=== PATIENT | female | born 1970 | race Caucasian/White ===

== ENCOUNTER 2016-12-28 22:27 | Emergency (ER) | payer SELFPAY ==
[2016-12-28] MEDS ORDERED: 0.9 % SODIUM CHLORIDE 1,000 ML IV ONE (22:44)
[2016-12-28] MEDS ORDERED: INSULIN REGULAR, HUMAN 100 UNIT/ML 3ML VIAL IV ONE (22:45)
[2016-12-28] MEDS ORDERED: ONDANSETRON HCL 4 MG TAB.RAPDIS ONE (22:53)
[2016-12-28] MEDS ORDERED: ONDANSETRON HCL 4 MG TAB.RAPDIS PO ONE (22:53)
[2016-12-28 23:09] LABS: BASOPHILS % 0.6 (0.0-1.5); EOSINOPHILS % 2.3 % (0.0-6.8); MEAN CORPUSCULAR HEMOGLOBIN 29.9 pg (28.0-34.0); MEAN CORPUSCULAR VOLUME 95.8 fl (80.0-100.0); MONOCYTES % 4.3 % (0.0-11.0); NEUTROPHILS # 13.2 # k/uL (1.4-7.7)
[2016-12-28] MEDS ORDERED: INSULIN REGULAR, HUMAN 100 UNIT in 0.9 % SODIUM CHLORIDE 100 ML IV ONE ×2 (23:43)
--- NOTE | 2016-12-29 00:13 | ED Physician Documentation ---
General Adult - HISTORIAN Historian: patient - HPI Stated Complaint: n/v high blood sugar Chief Complaint: General Adult Additional Information: Nausea, vomiting, polyuria, sleeping, for three days. Toes amputated at [facility] on 12/21, said to be 2/2 blood clots, 2/2 blood clot in abdomen. Told at that time she had DM. Says no primary, no referral, no education. Brought to ER POV per son. 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 12/21 amputatioon three toes right foot) Allergies/Adverse Reactions: Allergies Allergy/AdvReac Type Severity Reaction Status Date / Time codeine Allergy Verified 12/28/16 23:01 - SOCIAL HX Smoking History: cigarettes Alcohol Use: none Drug Use: none - FAMILY HX Family History: No (no signif) - VITAL SIGNS Vital Signs: Vital Signs Temp Pulse Resp BP Pulse Ox 99 F 113 H 22 118/49 96 12/28/16 22:28 12/28/16 22:28 12/28/16 22:28 12/28/16 22:28 12/28/16 22:28 - REVIEWED ASSESSMENTS Nursing Assessment Reviewed: Yes Vitals Reviewed: Yes Progress - Progress Progress: Chest 2 views History: Hyperglycemia and diabetes Findings: The lungs are clear. No pleural effusions are observed. Heart size and pulmonary vascularity are normal. Osseous structures are unremarkable. Impression: Normal chest. Electronically signed on December 29, 2016 12:05:08 AM CDT by: Yannick Vail [id number]. accepted for direct admit to [facility] per Dr. Ford ED Results Lab/Radiology - Lab Results Lab Results: Lab Results 12/28/16 23:01 WBC 16.20 K/ul H K/ul (4.00-12.00) RBC 4.99 M/ul M/ul (3.90-5.20) Hgb 14.9 g/dL g/dL (12.0-16.0) Hct 47.8 % H % (34.5-46.5) MCV 95.8 fl fl (80.0-100.0) MCH 29.9 pg pg (28.0-34.0) MCHC 31.2 g/dL g/dL (30.0-36.0) RDW 12.8 % % (11.3-14.3) Plt Count 404 K/mm3 H K/mm3 (130-400) Neut % (Auto) 81.6 % H % (39.0-79.0) Lymph % (Auto) 10.3 % L % (16.0-50.0) Grainger % (Auto) 4.3 % % (0.0-11.0) Eos % (Auto) 2.3 % % (0.0-6.8) Baso % (Auto) 0.6 (0.0-1.5) Neut # 13.2 # k/uL H # k/uL (1.4-7.7) Lymph # 1.7 # k/uL # k/uL (0.6-4.0) Grainger # 0.7 # k/uL # k/uL (0.0-0.9) Eos # 0.4 # k/uL # k/uL (0.0-0.6) Baso # 0.1 # k/uL # k/uL (0.0-0.5) Reactive Lymphs % 0.9 % % (0.0-5.0) Reactive Lymphs # 0.2 # k/uL # k/uL (0.0-0.8) - Orders Orders: ED Orders Category Date Time Status Further Nursing Orders 1T Care 12/28/16 22:42 Active CHEST P.A.&LAT 2 VIEWS [RAD] Stat Exams 12/28/16 Ordered ARTERIAL BLOOD GAS Stat Lab 12/28/16 Uncollected CBC/PLATELET/DIFF Routine Lab 12/28/16 Ordered CMP Routine Lab 12/28/16 Ordered URINALYSIS Routine Lab 12/28/16 Ordered joe [AMYLASE] Routine Lab 12/28/16 Ordered 0.9 % Sodium Chloride [Normal Saline] 1,000 ml Med 12/28/16 22:44 Active IV Q1H Insulin Regular, Human [Humulin R] Med 12/28/16 22:45 Discontinued 10 unit IV NOW ONE Ondansetron HCl Rapdis [Zofran Odt] Med 12/28/16 22:53 Discontinued 4 mg .ROUTE .STK-MED ONE Ondansetron HCl Rapdis [Zofran Odt] Med 12/28/16 22:53 Once 4 mg PO NOW ONE General Adult Physical Exam - PHYSICAL EXAM GENERAL APPEARANCE: moderate distress EENT: eye inspection normal, ENT inspection normal, pharynx normal, dry mucous membranes NECK: normal inspection, supple RESPIRATORY: no resp distress, breath sounds normal CVS: reg rate & rhythm, heart sounds normal ABDOMEN: soft, normal bowel sounds RECTAL: deferred BACK: normal inspection, no CVA tenderness SKIN: warm/dry, normal color EXTREMITIES: non-tender, other (sutures in place right foot) NEURO: CN's nml as tested, motor nml, sensation nml, cognition normal Discharge Clincal Impression: Diabetic ketoacidosis Referrals: Primary Doctor,No [Primary Care Provider] - 2 Days Condition: Fair Disposition: XFER SHT-TRM HOSP Decision to Admit: NO Decision Time: 00:09
[2016-12-29] MEDS ORDERED: 0.9 % SODIUM CHLORIDE 1,000 ML IV SCH (00:30)
[2016-12-29 00:46] VITALS: BP 163/99
[2016-12-29 05:34] LABS: APPEARANCE,URINE CLEAR (CLEAR); COLOR,URINE YELLOW (YELLOW); OCCULT BLOOD,URINE 2+ (NEGATIVE); UROBILINOGEN URINE 0.2 Eu (0.2-1.0)
[2016-12-29 05:36] LABS: AMPHETAMINE NEGATIVE ng/mL (<1000); BARBITURATES NEGATIVE ng/mL (<300); CANNABINOIDS NEGATIVE ng/mL (<50); COCAINE NEGATIVE ng/mL (<150); METHAMPHETAMINE NON NEGATIVE ng/mL (<1000); METHYLENEDIOXYMETHAMPHETAMINE NEGATIVE ng/mL (<500)
--- NOTE | 2016-12-29 06:01 | Diagnostic Imaging Report ---
NAEL BRISCOE~ [facility] [id number] [facility] [address] [place], [place]. [address] ~ ~ ~ ~ Report Submission Date: December 29, 2016 12:05:08 AM CDT Patient ~ Study Name: BREANNE CASTRO ~ Date: December 28, 2016 11:23:46 PM CDT ~ Modality Type: CR Gender: F ~ Description: CHEST : 68 ~ Institution: [facility] Physician: NAEL BRISCOE ~ ~ ~ ~ Chest 2 views History: Hyperglycemia and diabetes Findings: The lungs are clear. No pleural effusions are observed. Heart size and pulmonary vascularity are normal. Osseous structures are unremarkable. Impression: Normal chest. ~ Electronically signed on December 29, 2016 12:05:08 AM CDT by: Yannick WATERMAN
[2016-12-31 08:46] LABS: ABG PH 7.4 (7.35-7.45)
[2016-12-31 08:47] LABS: ABG BASE EXCESS 1.5 (-2 - +2)
== END 2016-12-29 00:20 | disposition short-term general hospital (02) ==
LOC: ED 22:27
DX: E13.10 Other specified diabetes mellitus with ketoacidosis without coma (principal)
CPT/HCPCS: 36600; 71020; 80053; 80377; 81002; 82150; 82803; 85025; A9270; J1815; J7030; G0481; S1016